=== PATIENT | female | born 1975 | race Caucasian/White ===

== ENCOUNTER 2022-05-09 14:52 | Emergency (ER) | payer MEDICAID ==
[~2022-05-09] VITALS: Ht 167.6 cm; Wt 73.0 kg
[2022-05-09] MEDS ORDERED: MAGNESIUM/ALUMINUM HYDROXIDE/SIMETHICONE 30ML UDC PO ONE (15:30)
[2022-05-09] MEDS ORDERED: ONDANSETRON HCL 4MG/2ML INJ IV ONE (15:30)
[2022-05-09] MEDS ORDERED: ACETAMINOPHEN 325MG TABLET PO ONE (15:30)
[2022-05-09] MEDS ORDERED: FAMOTIDINE 20MG/2ML VIAL IV ONE (15:30)
[2022-05-09 15:43] LABS: BASOPHILS % 0.5 % (0.0-2.0); EOSINOPHILS % 0.7 % (0.0-5.0); HEMATOCRIT. 39.8 % (36.0-48.0); HEMOGLOBIN. 13.3 g/dL (12.0-16.0); MEAN CORPUSCULAR HEMOGLOBIN 27.3 pg (28.0-32.0); MEAN CORPUSCULAR VOLUME 81.9 fL (81.0-99.0); MEAN PLATELET VOLUME 9.2 fl (7.4-10.4); MONOCYTES % 8.7 % (2.0-8.0); NEUTROPHILS % 70.1 % (40.0-76.0); PLATELET 340 x1000/uL (130-400); RED BLOOD CELL COUNT 4.86 mill/uL (4.2-5.4); RED CELL DISTRIBUTION WIDTH 14.5 % (11.6-14.6)
[2022-05-09 15:47] LABS: HCG SCREEN NEGATIVE
[2022-05-09 15:49] LABS: CHLORIDE 100 mEq/L (98-107)
[2022-05-09 16:46] LABS: CLARITY URINE CLEAR (CLEAR); COLOR URINE YELLOW (YELLOW); KETONES URINE NEGATIVE (NEGATIVE); LEUKOCYTE ESTERASE URINE NEGATIVE (NEGATIVE); NITRITE URINE NEGATIVE (NEGATIVE); OCCULT BLOOD URINE NEGATIVE (NEGATIVE); PH URINE 7.5 (4.5-8.0); PROTEIN URINE NEGATIVE (NEGATIVE); SPECIFIC GRAVITY URINE 1.016 (1.005-1.030)
[2022-05-09] MEDS ORDERED: POTASSIUM CHLORIDE 20MEQ TABLET SR PO ONE (17:45)
[2022-05-09 19:15] VITALS: BP 125/77
== END 2022-05-09 19:58 | disposition home or self-care (01) ==
LOC: ER 14:52
DX: R07.89 Other chest pain (principal); R51.9 Headache, unspecified; I10 Essential (primary) hypertension; Z20.822 Contact with and (suspected) exposure to COVID-19
CPT/HCPCS: 36415; 71045; 80053; 81003; 83690; 83880; 84484; 84703; 85025; 87426; 93005; 96374; 96375; 99285; C9803; J2405; J3490

== ENCOUNTER 2022-06-01 12:27 | Emergency (ER) | payer MEDICAID, OTHER ==
[~2022-06-01] VITALS: Ht 152.4 cm; Wt 73.0 kg
[2022-06-01] MEDS ORDERED: MAGNESIUM/ALUMINUM HYDROXIDE/SIMETHICONE 30ML UDC PO STA (13:28)
[2022-06-01] MEDS ORDERED: MAGNESIUM/ALUMINUM HYDROXIDE/SIMETHICONE 30ML UDC PO NR (13:28)
[2022-06-01] MEDS ORDERED: VISCOUS LIDOCAINE 2% 15 ML UDC PO STA (13:28)
[2022-06-01] MEDS ORDERED: VISCOUS LIDOCAINE 2% 15 ML UDC PO NR (13:28)
[2022-06-01] MEDS ORDERED: FAMOTIDINE 20MG TABLET PO ONE (13:30)
[2022-06-01] MEDS ORDERED: FAMOTIDINE 20MG TABLET PO NR (13:30)
[2022-06-01 14:04] LABS: CLARITY URINE CLEAR (CLEAR); COLOR URINE YELLOW (YELLOW); KETONES URINE NEGATIVE (NEGATIVE); LEUKOCYTE ESTERASE URINE NEGATIVE (NEGATIVE); NITRITE URINE NEGATIVE (NEGATIVE); OCCULT BLOOD URINE NEGATIVE (NEGATIVE); PH URINE 7.5 (4.5-8.0); PROTEIN URINE NEGATIVE (NEGATIVE); UROBILINOGEN URINE 0.2 E.U./dL (0.2-1.0)
[2022-06-01 14:57] LABS: BASOPHILS % 0.3 % (0.0-2.0); EOSINOPHILS % 0.7 % (0.0-5.0); HEMATOCRIT. 41.1 % (36.0-48.0); HEMOGLOBIN. 13.7 g/dL (12.0-16.0); LYMPHOCYTES % 15.5 % (20.0-50.0); MEAN CORPUSCULAR HEMOGLOBIN 27.4 pg (28.0-32.0); MEAN CORPUSCULAR VOLUME 82.5 fL (81.0-99.0); MEAN PLATELET VOLUME 9.2 fl (7.4-10.4); NEUTROPHILS % 75.5 % (40.0-76.0); PLATELET 311 x1000/uL (130-400); RED BLOOD CELL COUNT 4.98 mill/uL (4.2-5.4); RED CELL DISTRIBUTION WIDTH 14.5 % (11.6-14.6)
[2022-06-01 15:04] LABS: CHLORIDE 99 mEq/L (98-107)
[2022-06-01] MEDS ORDERED: FAMO40TA70 MT (15:25)
[2022-06-01] MEDS ORDERED: MAG-55 MT (15:25)
[2022-06-01] MEDS ORDERED: POTASSIUM CHLORIDE 20MEQ TABLET SR PO NR (15:30)
[2022-06-01 16:13] VITALS: BP 127/87
== END 2022-06-01 16:14 | disposition home or self-care (01) ==
LOC: ER 12:27
DX: K29.70 Gastritis, unspecified, without bleeding (principal); K76.0 Fatty (change of) liver, not elsewhere classified; I10 Essential (primary) hypertension; Z90.710 Acquired absence of both cervix and uterus
CPT/HCPCS: 36415; 71045; 76705; 80053; 81003; 81025; 84484; 85025; 93005; 99285

== ENCOUNTER 2022-07-17 18:51 | Emergency (ER) | payer OTHER ==
[~2022-07-17] VITALS: Ht 157.5 cm; Wt 100.0 kg
[~2022-07-17 18:51] MED LIST: FAMO40TA70 MT; MAG-55 MT
[2022-07-17 19:01] VITALS: BP 162/101
[2022-07-18] MEDS ORDERED: FAMO40TA70 MT (00:17)
[2022-07-18] MEDS ORDERED: CLOT15CR27 TP (00:17)
[2022-07-18] MEDS ORDERED: ACET-2708 MT (00:17)
== END 2022-07-18 00:39 | disposition home or self-care (01) ==
LOC: ER 18:51
DX: B37.9 Candidiasis, unspecified (principal); R21 Rash and other nonspecific skin eruption; I10 Essential (primary) hypertension; Z90.710 Acquired absence of both cervix and uterus
CPT/HCPCS: 99282

== ENCOUNTER 2022-08-11 20:41 | Emergency (ER) | payer MEDICAID, OTHER ==
[~2022-08-11] VITALS: Ht 157.5 cm; Wt 64.0 kg
[~2022-08-11 20:41] MED LIST changes: +ACET-2708 MT; +CLOT15CR27 TP
[2022-08-11] MEDS ORDERED: ACETAMINOPHEN 325MG TABLET PO STA (23:09)
[2022-08-11 23:43] LABS: BASOPHILS % 0.2 % (0.0-2.0); EOSINOPHILS % 0.6 % (0.0-5.0); HEMATOCRIT. 38.6 % (36.0-48.0); HEMOGLOBIN. 12.9 g/dL (12.0-16.0); MEAN CORPUSCULAR HEMOGLOBIN 27.2 pg (28.0-32.0); MEAN CORPUSCULAR VOLUME 81.4 fL (81.0-99.0); MEAN PLATELET VOLUME 8.9 fl (7.4-10.4); MONOCYTES % 7.6 % (2.0-8.0); NEUTROPHILS % 74.6 % (40.0-76.0); PLATELET 305 x1000/uL (130-400); RED BLOOD CELL COUNT 4.73 mill/uL (4.2-5.4); RED CELL DISTRIBUTION WIDTH 14.1 % (11.6-14.6)
[2022-08-11 23:56] LABS: CHLORIDE 97 mEq/L (98-107)
[2022-08-12] MEDS ORDERED: POTASSIUM CHLORIDE 20MEQ TABLET SR PO NR (01:15)
[2022-08-12] MEDS ORDERED: PROT20 MT (01:35)
[2022-08-12 04:57] VITALS: BP 148/62
== END 2022-08-12 04:59 | disposition home or self-care (01) ==
LOC: ER 20:41
DX: E87.6 Hypokalemia (principal); K29.70 Gastritis, unspecified, without bleeding; R11.10 Vomiting, unspecified; R19.7 Diarrhea, unspecified; I10 Essential (primary) hypertension; Z90.710 Acquired absence of both cervix and uterus
CPT/HCPCS: 36415; 71045; 80053; 85025; 99284

== ENCOUNTER 2022-08-27 07:18 | Emergency (ER) | payer MEDICAID, OTHER ==
[~2022-08-27] VITALS: Ht 160 cm; Wt 68.0 kg
[~2022-08-27 07:18] MED LIST changes: +PROT20 MT
[2022-08-27 09:19] LABS: BASOPHILS % 0.4 % (0.0-2.0); EOSINOPHILS % 0.2 % (0.0-5.0); HEMATOCRIT. 43.3 % (36.0-48.0); HEMOGLOBIN. 14.6 g/dL (12.0-16.0); LYMPHOCYTES % 14.4 % (20.0-50.0); MEAN CORPUSCULAR HEMOGLOBIN 27.9 pg (28.0-32.0); MEAN CORPUSCULAR VOLUME 83.1 fL (81.0-99.0); MEAN PLATELET VOLUME 9.2 fl (7.4-10.4); MONOCYTES % 5.5 % (2.0-8.0); NEUTROPHILS % 79.5 % (40.0-76.0); PLATELET 298 x1000/uL (130-400); RED BLOOD CELL COUNT 5.21 mill/uL (4.2-5.4); RED CELL DISTRIBUTION WIDTH 14.1 % (11.6-14.6)
[2022-08-27 09:23] LABS: CHLORIDE 97 mEq/L (98-107)
[2022-08-27] MEDS ORDERED: ACETAMINOPHEN 325MG TABLET PO ONE (15:45)
[2022-08-27] MEDS ORDERED: MAGNESIUM/ALUMINUM HYDROXIDE/SIMETHICONE 30ML UDC PO ONE (15:45)
[2022-08-27] MEDS ORDERED: FAMOTIDINE 20MG TABLET PO ONE (15:45)
[2022-08-27 19:40] VITALS: BP 130/66
== END 2022-08-27 20:09 | disposition short-term general hospital (02) ==
LOC: ER 07:18
DX: R07.9 Chest pain, unspecified (principal); I10 Essential (primary) hypertension; Z90.710 Acquired absence of both cervix and uterus
CPT/HCPCS: 36415; 71045; 80053; 83880; 84484; 85025; 93005; 99285; Z7610

== ENCOUNTER 2023-03-12 11:07 | Emergency (ER) | payer OTHER ==
[~2023-03-12] VITALS: Ht 152.4 cm; Wt 77.0 kg
[2023-03-12] MEDS ORDERED: SODIUM CHLORIDE 0.9% 1,000 ML IV ONE (11:45)
[2023-03-12 12:24] LABS: BASOPHILS % 0.5 % (0.0-2.0); EOSINOPHILS % 0.5 % (0.0-5.0); HEMATOCRIT. 40.5 % (36.0-48.0); HEMOGLOBIN. 13.5 g/dL (12.0-16.0); LYMPHOCYTES % 16.1 % (20.0-50.0); MEAN CORPUSCULAR HEMOGLOBIN 27.6 pg (28.0-32.0); MEAN CORPUSCULAR VOLUME 82.5 fL (81.0-99.0); MONOCYTES % 5.7 % (2.0-8.0); NEUTROPHILS % 77.2 % (40.0-76.0); RED BLOOD CELL COUNT 4.91 mill/uL (4.2-5.4); RED CELL DISTRIBUTION WIDTH 14.5 % (11.6-14.6)
[2023-03-12 12:32] LABS: CHLORIDE 100 mEq/L (98-107)
[2023-03-12 14:30] LABS: HCG SCREEN NEGATIVE
[2023-03-12] MEDS ORDERED: LORAZEPAM 2MG/ML CPJ IV ONE (14:45)
[2023-03-12 15:11] LABS: *AMPHETAMINES SCREEN URINE NEGATIVE (NEGATIVE); *BARBITURATES SCREEN URINE NEGATIVE (NEGATIVE); *BENZODIAZEPINES SCREEN URINE NEGATIVE (NEGATIVE); *COCAINE SCREEN URINE NEGATIVE (NEGATIVE); CANNABINOID URINE SCREEN NEGATIVE (NEGATIVE); METHADONE URINE SCREEN NEGATIVE (NEGATIVE); OPIATES URINE SCREEN NEGATIVE (NEGATIVE); PHENCYCLIDINE URINE SCREEN NEGATIVE (NEGATIVE)
[2023-03-12 17:03] VITALS: BP 141/94
== END 2023-03-12 17:50 | disposition short-term general hospital (02) ==
LOC: ER 11:07 → CANBEDREQ 14:42 → ER 17:50
DX: R00.0 Tachycardia, unspecified (principal); R00.2 Palpitations; F41.9 Anxiety disorder, unspecified; J45.909 Unspecified asthma, uncomplicated; I10 Essential (primary) hypertension; Z90.710 Acquired absence of both cervix and uterus
CPT/HCPCS: 36415; 71045; 80053; 80305; 83880; 84443; 84484; 84703; 85025; 85379; 93005; 96361; 96374; 99285; J2060; J7030; Z7610

== ENCOUNTER 2023-06-07 17:05 | Emergency (ER) | payer OTHER ==
[~2023-06-07] VITALS: Ht 154.9 cm; Wt 70.0 kg
[2023-06-07 17:11] VITALS: TEMP 98.4; O2SAT 98
[2023-06-07 18:38] VITALS: BP 150/95; PULSE 101; RESP 18
[2023-06-07] MEDS ORDERED: IBUPROFEN 600MG TABLET PO STA (18:38)
[2023-06-07 19:11] LABS: BASOPHILS % 0.4 % (0.0-2.0); EOSINOPHILS % 0.6 % (0.0-5.0); HEMATOCRIT. 41.6 % (36.0-48.0); HEMOGLOBIN. 13.9 g/dL (12.0-16.0); LYMPHOCYTES % 14.2 % (20.0-50.0); MEAN CORPUSCULAR HEMOGLOBIN 26.7 pg (28.0-32.0); MEAN CORPUSCULAR HGB CONC 33.3 g/dL (31.0-37.0); MEAN CORPUSCULAR VOLUME 80.1 fL (81.0-99.0); MEAN PLATELET VOLUME 8.7 fl (7.4-10.4); MONOCYTES % 5.9 % (2.0-8.0); NEUTROPHILS % 78.9 % (40.0-76.0); PLATELET 359 x1000/uL (130-400); RED BLOOD CELL COUNT 5.19 mill/uL (4.2-5.4); RED CELL DISTRIBUTION WIDTH 14.8 % (11.6-14.6)
[2023-06-07 19:19] LABS: CHLORIDE 99 mEq/L (98-107); INDEX HEMOLYSI 1 (1-3); INDEX ICTERIC 1 (1-4); INDEX LIPEMIC 1 (1-3); POTASSIUM 2.9 mEq/L (3.5-5.1); SODIUM 135 mEq/L (136-145)
[2023-06-07 19:37] LABS: ALANINE AMINOTRANSFERASE 55 IU/L (13-61); ALBUMIN 4.2 g/dL (3.4-5.0); ASPARTATE AMINOTRANSFERASE 18 IU/L (15-37); BILIRUBIN TOTAL 0.3 mg/dL (0.1-1.0); CALCIUM 9.3 mg/dL (8.5-10.1); CARBON DIOXIDE 28 mEq/L (21-32); CREATININE 0.6 mg/dL (0.6-1.3); GLUCOSE 111 mg/dL (70-105); PROTEIN TOTAL 9.2 g/dL (6.0-8.3); UREA NITROGEN BLOOD 9 mg/dL (7-21)
[2023-06-07 19:41] LABS: TROPONIN I HIGH SENSITIVITY < 4 ng/L (<54)
[2023-06-07] MEDS ORDERED: POTASSIUM CHLORIDE 20MEQ TABLET SR PO ONE (21:00)
== END 2023-06-08 00:06 | disposition home or self-care (01) ==
LOC: ER 17:05
DX: E87.6 Hypokalemia (principal); R07.89 Other chest pain; J45.909 Unspecified asthma, uncomplicated; F41.0 Panic disorder [episodic paroxysmal anxiety]; I10 Essential (primary) hypertension; K21.9 Gastro-esophageal reflux disease without esophagitis; R94.31 Abnormal electrocardiogram [ECG] [EKG]; Z90.710 Acquired absence of both cervix and uterus
CPT/HCPCS: 36415; 71045; 80053; 84484; 85025; 93005; 99285

== ENCOUNTER 2024-02-26 10:35 | Emergency (ER) | payer OTHER ==
[~2024-02-26] VITALS: Ht 162.6 cm; Wt 73.0 kg
[2024-02-26 10:40] VITALS: TEMP 98.3; O2SAT 98
[2024-02-26 11:53] LABS: BASOPHILS % 0.4 % (0.0-2.0); EOSINOPHILS % 0.3 % (0.0-5.0); HEMATOCRIT. 41.1 % (36.0-48.0); HEMOGLOBIN. 13.6 g/dL (12.0-16.0); LYMPHOCYTES % 13.7 % (20.0-50.0); MEAN CORPUSCULAR HGB CONC 33.2 g/dL (31.0-37.0); MEAN CORPUSCULAR VOLUME 81.4 fL (81.0-99.0); MONOCYTES % 7.1 % (2.0-8.0); NEUTROPHILS % 78.5 % (40.0-76.0); PLATELET 310 x1000/uL (130-400); RED BLOOD CELL COUNT 5.04 mill/uL (4.2-5.4); RED CELL DISTRIBUTION WIDTH 14.4 % (11.6-14.6); WHITE BLOOD COUNT 12.8 x1000/uL (4.5-11.0)
[2024-02-26 12:09] LABS: CARBON DIOXIDE 28 mEq/L (21-32); CHLORIDE 99 mEq/L (98-107); POTASSIUM 3.5 mEq/L (3.5-5.1); SODIUM 135 mEq/L (136-145)
[2024-02-26 12:10] LABS: CALCIUM 9.6 mg/dL (8.7-10.4)
[2024-02-26 12:14] LABS: CREATININE 0.7 mg/dL (0.6-1.0); GLUCOSE 109 mg/dL (70-105)
[2024-02-26 12:15] LABS: UREA NITROGEN BLOOD 9 mg/dL (9-23)
[2024-02-26 12:16] LABS: ALANINE AMINOTRANSFERASE 45 IU/L (10-49); ASPARTATE AMINOTRANSFERASE 28 IU/L (<34)
[2024-02-26 12:17] LABS: BILIRUBIN TOTAL 0.5 mg/dL (0.1-1.0); PROTEIN TOTAL 9.1 g/dL (6.0-8.3)
[2024-02-26 12:19] LABS: TROPONIN I HIGH SENSITIVITY < 4 ng/L (3.0-34)
[2024-02-26 12:53] VITALS: BP 124/76; PULSE 81; RESP 16
== END 2024-02-26 13:47 | disposition admitted as inpatient to this hospital (09) ==
LOC: ER 10:35
DX: R07.9 Chest pain, unspecified (principal); J45.909 Unspecified asthma, uncomplicated; F41.9 Anxiety disorder, unspecified; I10 Essential (primary) hypertension
CPT/HCPCS: 36415; 71045; 80053; 84484; 85025; 93005; 99285